=== PATIENT | male | born 1960 | race Caucasian/White ===

== ENCOUNTER → 2016-07-08 | Outpatient (CLI) | payer BC ==
[~2016-07-08] MED LIST: ATOR-24 PO; B-COCAP2 PO; FLUT0.15 NAE; LISI-729 PO; METAMUCIL PO; MULT-506 PO; PANT40TA PO
[2016-07-08 14:53] LABS: CHOLESTEROL/HDL RATIO 4.6
== END | disposition home or self-care (01) ==
LOC: C.LABPVFM 08:11
PROVIDERS: ATTEND Family Medicine
DX: E78.1 Pure hyperglyceridemia (principal)

== ENCOUNTER 2017-10-31 18:22 | Emergency (ER) | payer BC, OTHER ==
[~2017-10-31] VITALS: Ht 182.9 cm; Wt 91.4 kg
[2017-10-31 18:34] VITALS: TEMP 36.9; Ht 182.9 cm; Wt 91.4 kg
[2017-10-31] MEDS ORDERED: SODIUM CHLORIDE 0.9% 1000ML 1,000 ML IV STA (18:49)
[2017-10-31] MEDS ORDERED: OPTIRAY 320 IV PRN (19:00)
[2017-10-31 19:20] LABS: BASO % 0.3 %; BASO ABS # 0.04 K/uL (0-0.2); EOS % 0.6 %; EOS ABS # 0.09 K/uL (0-0.5); HEMOGLOBIN 14.5 g/dL (14.0-18.0); IG# 0.04 K/uL (0.00-0.02); LYMPH % 10.1 %; LYMPH ABS # 1.57 K/uL (1.2-3.4); MEAN CELL VOLUME 93.1 fL (80-100); MEAN CORPUSCULAR HEMOGLOBIN 32.2 pg (25-34); MEAN CORPUSCULAR HGB CONC 34.5 g/dl (32-36); MEAN PLATELET VOLUME 8.9 fL (7.4-10.4); MONO % 8.1 %; MONO ABS # 1.25 K/uL (0.11-0.59); NEUT % 80.6 %; NEUT ABS # 12.53 K/uL (1.4-6.5); PLATELET COUNT 307 K/uL (130-400); RED CELL DISTRIBUTION WIDTH CV 12.9 % (11.5-14.5); RED CELL DISTRIBUTION WIDTH SD 44.2 fL (36.4-46.3); WHITE BLOOD COUNT 15.52 K/uL (4.8-10.8)
[2017-10-31] MEDS ORDERED: CALC625T PO (19:33)
[2017-10-31] MEDS ORDERED: PANT20TA2 PO (19:33)
[2017-10-31] MEDS ORDERED: FENO67CA PO (19:33)
[2017-10-31] MEDS ORDERED: B-COTAB18 PO (19:33)
[2017-10-31] MEDS ORDERED: LISI-730 PO (19:33)
[2017-10-31 19:42] LABS: ALBUMIN 3.9 gm/dl (3.4-5.0); CALCIUM 9.1 mg/dl (8.5-10.1); CREATININE 1.07 mg/dl (0.60-1.40); POTASSIUM 3.8 mmol/L (3.5-5.1); TOTAL PROTEIN 7.3 gm/dl (6.4-8.2)
--- NOTE | 2017-10-31 20:32 | DIAGNOSTIC IMAGING REPORT ---
CT SCAN OF THE ABDOMEN AND PELVIS WITH IV CONTRAST CLINICAL HISTORY: Left lower quadrant abdominal pain. COMPARISON STUDY: Abdominal CT dated 12/26/2009. TECHNIQUE: Following the IV administration of 115 cc of Optiray 320, CT scan of the abdomen and pelvis is performed from the lung bases to the proximal femora. Images are reviewed in the axial, sagittal, and coronal planes. IV contrast was administered without complication. A dose lowering technique was utilized adhering to the principles of ALARA. CT DOSE: 512.56 mGy.cm FINDINGS: Lung bases: The heart is normal in size and without pericardial effusion. There is a calcified granuloma at the right lung base. The lung bases are otherwise clear. Liver: The contrast-enhanced liver is enlarged, measuring 20.3 cm in length. The liver demonstrates diminished attenuation consistent with mild hepatic steatosis. Fatty sparing is seen adjacent to gallbladder fossa. There is no intrahepatic biliary ductal dilatation. The hepatic veins and portal veins are patent. Gallbladder: Unremarkable. Spleen: Normal in size and attenuation. Pancreas: Moderately atrophic and grossly unremarkable. Adrenal glands: Unremarkable. Kidneys: The contrast enhanced kidneys demonstrate mild cortical atrophy and are without hydronephrosis. The kidneys enhance symmetrically. There is a small nonobstructing calculus identified on the right. Parapelvic cysts are seen on the left. Abdominal vasculature: The abdominal aorta is normal in course and caliber noting scattered foci of atherosclerotic calcification. Bowel: There is mild to moderate diverticulosis of the left colon. There is wall thickening with pericolonic inflammation and fluid seen around the distal descending/proximal sigmoid colon with consistent with acute diverticulitis. No diverticular abscess is identified. Mucosal thickening and hyperemia is also seen within the distal sigmoid and rectum. The proximal colon is decompressed. No bowel obstruction is identified. The appendix is not identified and reported surgically absent. Peritoneum: There is no intraperitoneal free air or abdominal ascites. Lymphadenopathy: None. Pelvic viscera: There is median lobe hypertrophy of the prostate gland. The bladder wall is mildly thickened and trabeculated suggesting chronic outlet obstruction. Calcified phleboliths are noted in the pelvis. Trace free fluid is seen in the pelvis. Skeletal structures: No lytic or blastic lesions are seen. Mild lumbosacral spondylosis is identified. IMPRESSION: 1. There is mild to moderate diverticulosis of the left colon with evidence of acute diverticulitis involving the distal descending/proximal sigmoid. There is no intraperitoneal free air or evidence of diverticular abscess. 2. A small volume of free fluid in the pelvis is likely on a reactive basis. 3. Mild wall thickening and hyperemia is suggested in the distal sigmoid and rectum. Correlate clinically for evidence of a mild superimposed proctitis. 4. There is a small nonobstructing right renal calculus. 5. Hepatomegaly and mild hepatic steatosis. 6. Additional findings as above. Electronically signed by: Shashi Cuadra M.D. 10/31/2017 8:31 PM Dictated Date/Time: 10/31/2017 8:21 PM
[2017-10-31] MEDS ORDERED: METRONIDAZOLE 250 MG TAB PO STA (21:09)
[2017-10-31] MEDS ORDERED: CIPROFLOXACIN 500MG HOME PACK PO ONE (21:15)
[2017-10-31] MEDS ORDERED: CIPR-255 PO (21:17)
[2017-10-31] MEDS ORDERED: METR-163 PO (21:17)
[2017-10-31 21:31] VITALS: BP 121/81; PULSE 68; O2SAT 97
--- NOTE | 2017-11-01 00:16 | EMERGENCY ROOM VISIT NOTE ---
History First contact with patient: 18:38 Chief Complaint: ABDOMINAL PAIN Stated Complaint: DIVERTICULITIOUS Nursing Triage Summary: Pain in lower abdomen since night, that got worse today. Took 2 laxatives at home, but this did not help. Denies nausea or vomiting. Denies diarrhea. History of Present Illness The patient is a 57 year old male who presents to the Emergency Room with complaints of lower central quadrant abdominal pain. The patient reports that his pain started 2 days ago, and has steadily worsened. The patient reports a prior history of diverticulitis, and reports that it feels the same. The patient last had diverticulitis last December 2016. The patient denies any constipation, rectal bleeding, nausea or vomiting. He denies any pain radiating into the right abdomen, back or chest. The patient also reports a prior history of kidney stones, but reports that this feels different. He has not noticed any hematuria or difficulty with urination. Review of Systems HEENT: Denies dizziness, visual problems, hearing loss, tinnitus. Denies difficulty swallowing or oral lesions. PULMONARY: Denies cough, shortness of breath, sputum production or hemoptysis. CARDIOVASCULAR: Denies chest pain, palpitations, dyspnea on exertion, orthopnea or peripheral edema. GASTROINTESTINAL: See HPI. GENITOURINARY: Denies dysuria, frequency, urgency or nocturia. NEUROLOGIC: Denies history of epilepsy, CVA, TIA or chronic headaches. MUSCULOSKELETAL: Denies history of joint tenderness/swelling. SKIN: Denies rashes or lesions. PSYCHIATRIC: Denies history of depression or mental illness. ENDOCRINE: Denies history of diabetes or thyroid disorders. Past Medical/Surgical History Medical Problems: (1) Abdom Aortic Aneurysm (2) Calculus Of Kidney (3) Diverticulosis Colon (W/O Ment Of Hemorrhage) (4) Esophageal Reflux (5) Essential (Primary) Hypertension (6) History Of Tobacco Use (7) Tobacco Use Disorder Family History Unremarkable Social History Smoking Status: Former Smoker Alcohol Use: occasionally Marital Status: Occupation Status: employed Current/Historical Medications Scheduled B-Complex Vitamins (Vitamin B Complex), 1 TAB PO DAILY Calcium Polycarbophil (Fibercon), 625 MG PO DAILY Ciprofloxacin Hcl (Cipro), 500 MG PO BID Fenofibrate Micronized (Tricor), 67 MG PO DAILY Lisinopril (Lisinopril), 5 MG PO DAILY Metronidazole (Flagyl), 500 MG PO TID Pantoprazole Sodium (Protonix), 20 MG PO BID Physical Exam Vital Signs Date Time Temp Pulse Resp B/P (MAP) Pulse Ox O2 Delivery O2 Flow Rate FiO2 10/31/17 21:31 68 121/81 97 10/31/17 20:13 71 158/90 96 Room Air 10/31/17 18:34 36.9 84 16 144/88 98 Room Air Physical Exam CONSTITUTIONAL: Healthy and well nourished. Alert and oriented X 3 with positive affect. Patient does not appear in any significant distress. HEENT: Normocephalic, atraumatic. Pupils equal, round and reactive. NECK: Full active range of motion without discomfort. RESPIRATORY: Clear to auscultation bilaterally with no wheezing, crackles, rhonchi or stridor. CARDIOVASCULAR: Regular rate and rhythm with no murmurs, rubs or gallops. GASTROINTESTINAL: Bowel sounds present in all quadrants. Examination shows suprapubic and left lower quadrant tenderness to palpation without rigidity, guarding or rebound. Negative ballottement. No hypertympany on percussion. Negative CVA tenderness. Negative McBurney's point tenderness. MUSCULOSKELETAL: Full range of motion of all joints without discomfort. No discomfort with range of motion of the left hip, or palpation of the lower lumbar spine, paraspinous muscles or sciatic notch. INTEGUMENTARY: No rash or other significant dermatologic conditions noted. HEMATOLOGIC: No ecchymosis or petechiae noted. NEUROLOGIC: No focal neurologic deficits noted. Medical Decision & Procedures ER Provider Diagnostic Interpretation: CT of the abdomen and pelvis with IV contrast shows evidence for an acute diverticulitis. No obvious abscess formation or microperforation noted. A possible proctitis is also suggested radiologist report is as follows: CT SCAN OF THE ABDOMEN AND PELVIS WITH IV CONTRAST CLINICAL HISTORY: Left lower quadrant abdominal pain. COMPARISON STUDY: Abdominal CT dated 12/26/2009. TECHNIQUE: Following the IV administration of 115 cc of Optiray 320, CT scan of the abdomen and pelvis is performed from the lung bases to the proximal femora. Images are reviewed in the axial, sagittal, and coronal planes. IV contrast was administered without complication. A dose lowering technique was utilized adhering to the principles of ALARA. CT DOSE: 512.56 mGy.cm FINDINGS: Lung bases: The heart is normal in size and without pericardial effusion. There is a calcified granuloma at the right lung base. The lung bases are otherwise clear. Liver: The contrast-enhanced liver is enlarged, measuring 20.3 cm in length. The liver demonstrates diminished attenuation consistent with mild hepatic steatosis. Fatty sparing is seen adjacent to gallbladder fossa. There is no intrahepatic biliary ductal dilatation. The hepatic veins and portal veins are patent. Gallbladder: Unremarkable. Spleen: Normal in size and attenuation. Pancreas: Moderately atrophic and grossly unremarkable. Adrenal glands: Unremarkable. Kidneys: The contrast enhanced kidneys demonstrate mild cortical atrophy and are without hydronephrosis. The kidneys enhance symmetrically. There is a small nonobstructing calculus identified on the right. Parapelvic cysts are seen on the left. Abdominal vasculature: The abdominal aorta is normal in course and caliber noting scattered foci of atherosclerotic calcification. Bowel: There is mild to moderate diverticulosis of the left colon. There is wall thickening with pericolonic inflammation and fluid seen around the distal descending/proximal sigmoid colon with consistent with acute diverticulitis. No diverticular abscess is identified. Mucosal thickening and hyperemia is also seen within the distal sigmoid and rectum. The proximal colon is decompressed. No bowel obstruction is identified. The appendix is not identified and reported surgically absent. Peritoneum: There is no intraperitoneal free air or abdominal ascites. Lymphadenopathy: None. Pelvic viscera: There is median lobe hypertrophy of the prostate gland. The bladder wall is mildly thickened and trabeculated suggesting chronic outlet obstruction. Calcified phleboliths are noted in the pelvis. Trace free fluid is seen in the pelvis. Skeletal structures: No lytic or blastic lesions are seen. Mild lumbosacral spondylosis is identified. IMPRESSION: 1. There is mild to moderate diverticulosis of the left colon with evidence of acute diverticulitis involving the distal descending/proximal sigmoid. There is no intraperitoneal free air or evidence of diverticular abscess. 2. A small volume of free fluid in the pelvis is likely on a reactive basis. 3. Mild wall thickening and hyperemia is suggested in the distal sigmoid and rectum. Correlate clinically for evidence of a mild superimposed proctitis. 4. There is a small nonobstructing right renal calculus. Laboratory Results 10/31/17 18:53 Red Blood Count 4.51, Mean Corpuscular Volume 93.1, Mean Corpuscular Hemoglobin 32.2, Mean Corpuscular Hemoglobin Concent 34.5, Mean Platelet Volume 8.9, Neutrophils (%) (Auto) 80.6, Lymphocytes (%) (Auto) 10.1, Monocytes (%) (Auto) 8.1, Eosinophils (%) (Auto) 0.6, Basophils (%) (Auto) 0.3, Neutrophils # (Auto) 12.53, Lymphocytes # (Auto) 1.57, Monocytes # (Auto) 1.25, Eosinophils # (Auto) 0.09, Basophils # (Auto) 0.04 10/31/17 18:53 Test 10/31/17 18:53 10/31/17 19:54 White Blood Count 15.52 K/uL (4.8-10.8) Red Blood Count 4.51 M/uL (4.7-6.1) Hemoglobin 14.5 g/dL (14.0-18.0) Hematocrit 42.0 % (42-52) Mean Corpuscular Volume 93.1 fL (80-100) Mean Corpuscular Hemoglobin 32.2 pg (25-34) Mean Corpuscular Hemoglobin Concent 34.5 g/dl (32-36) Platelet Count 307 K/uL (130-400) Mean Platelet Volume 8.9 fL (7.4-10.4) Neutrophils (%) (Auto) 80.6 % Lymphocytes (%) (Auto) 10.1 % Monocytes (%) (Auto) 8.1 % Eosinophils (%) (Auto) 0.6 % Basophils (%) (Auto) 0.3 % Neutrophils # (Auto) 12.53 K/uL (1.4-6.5) Lymphocytes # (Auto) 1.57 K/uL (1.2-3.4) Monocytes # (Auto) 1.25 K/uL (0.11-0.59) Eosinophils # (Auto) 0.09 K/uL (0-0.5) Basophils # (Auto) 0.04 K/uL (0-0.2) RDW Standard Deviation 44.2 fL (36.4-46.3) RDW Coefficient of Variation 12.9 % (11.5-14.5) Immature Granulocyte % (Auto) 0.3 % Immature Granulocyte # (Auto) 0.04 K/uL (0.00-0.02) Anion Gap 6.0 mmol/L (3-11) Est Creatinine Clear Calc Drug Dose 83.6 ml/min Estimated GFR () 88.8 Estimated GFR (Non- 76.7 BUN/Creatinine Ratio 16.3 (10-20) Calcium Level 9.1 mg/dl (8.5-10.1) Total Bilirubin 0.8 mg/dl (0.2-1) Direct Bilirubin 0.1 mg/dl (0-0.2) Aspartate Amino Transf (AST/SGOT) 19 U/L (15-37) Alanine Aminotransferase (ALT/SGPT) 27 U/L (12-78) Alkaline Phosphatase 106 U/L (45-117) Total Protein 7.3 gm/dl (6.4-8.2) Albumin 3.9 gm/dl (3.4-5.0) Lipase 110 U/L (73-393) Urine Color YELLOW Urine Appearance CLEAR (CLEAR) Urine pH 6.5 (4.5-7.5) Urine Specific [place] 1.011 (1.000-1.030) Urine Protein NEG (NEG) Urine Glucose (UA) NEG (NEG) Urine Ketones NEG (NEG) Urine Occult Blood NEG (NEG) Urine Nitrite NEG (NEG) Urine Bilirubin NEG (NEG) Urine Urobilinogen NEG (NEG) Urine Leukocyte Esterase NEG (NEG) The above labs were reviewed a moderate leukocytosis with left shift and bandemia. Partial renal profile, LFTs and lipase are grossly normal except for a mild hyponatremia. Urinalysis is unremarkable. Medications Administered Medications (Trade) Dose Ordered Sig/Tramaine Route Start Time Stop Time Status Last Admin Dose Admin Sodium Chloride 1,000 ml @ 999 mls/hr Q1H1M STAT IV 10/31/17 18:49 10/31/17 19:49 DC 10/31/17 19:08 999 MLS/HR Metronidazole (Flagyl Tab) 1,000 mg NOW STAT PO 10/31/17 21:09 10/31/17 21:11 DC 10/31/17 21:27 1,000 MG Ciprofloxacin (Cipro 500MG Home Pack) 1 homepack UD ONCE PO 10/31/17 21:15 10/31/17 21:16 DC 10/31/17 21:27 1 HOMEPACK ED Course Patient history and physical exam were performed. Nurse's notes were reviewed. Vital signs were reviewed and were normal. Patient does not appear in any acute distress. IV access was established, and labs were drawn. The patient was hydrated with a liter normal saline. He refused any and all these aches. Labs were reviewed to show a moderate leukocytosis. Remaining labs, including LFTs, lipase and urinalysis were normal. CT of the abdomen and pelvis with IV contrast shows evidence for acute diverticulitis. The patient reports that he felt well enough to go home, and is requesting prescription antibiotics. He refused any parenteral treatment or hospitalist evaluation. The patient will be provided home packs and prescriptions for Cipro and Flagyl. He was encouraged to follow-up with his PCP within the next 2-3 days for reevaluation. He was instructed to return to the emergency department sooner for any signs of worsening pain, rectal bleeding, fever or other concerns. The patient was happy with plan of care, voiced understanding of all discharge instructions, and denied any significant discomfort at the time of discharge. Medical Decision Workup today is consistent with an acute diverticulitis. CT scans does not show any evidence for abscess or perforation. Clinical exam is not suggestive of appendicitis. Laboratory studies are also not suggestive of pancreatitis, cholecystitis, hepatitis or UTI. Medication Reconcilliation Current Medication List: was personally reviewed by [facility] Blood Pressure Screening Patient's blood pressure: Normal blood pressure Impression Primary Impression: Diverticulitis Departure Information Dispostion Home / Self-Care Prescriptions Metronidazole (Flagyl) 500 Mg Tab 500 MG PO TID for Pain for 10 Days, #30 TAB For Initial Treatment Prov: Sarwat Crane PA 10/31/17 Ciprofloxacin Hcl (CIPRO) 500 Mg Tab 500 MG PO BID for 10 Days, #20 TAB Prov: Sarwat Crane PA 10/31/17 Forms Call Back Authorization, HOME CARE DOCUMENTATION FORM, IMPORTANT VISIT INFORMATION Patient Instructions [facility] Additional Instructions Complete all Cipro and Flagyl antibiotics as prescribed. Follow-up with your family doctor in 2-3 days for recheck, and to discuss referral to a gut sorter for further reevaluation.
== END 2017-10-31 21:33 | disposition home or self-care (01) ==
LOC: C.EDB 18:25
DX: K57.92 Diverticulitis of intestine, part unspecified, without perforation or abscess without bleeding (principal); I10 Essential (primary) hypertension; K21.9 Gastro-esophageal reflux disease without esophagitis; Z87.19 Personal history of other diseases of the digestive system; Z87.891 Personal history of nicotine dependence

== ENCOUNTER → 2017-11-06 | Outpatient (CLI) | payer OTHER ==
[~2017-11-06] MED LIST changes: -ATOR-24 PO; -B-COCAP2 PO; +B-COTAB18 PO; +CALC625T PO; +CIPR-255 PO; +FENO67CA PO; -FLUT0.15 NAE; -LISI-729 PO; +LISI-730 PO; -METAMUCIL PO; +METR-163 PO; -MULT-506 PO; +PANT20TA2 PO; -PANT40TA PO
== END | disposition home or self-care (01) ==
LOC: C.RDSM 09:04
PROVIDERS: ATTEND Family Medicine Sports Medicine
DX: M25.562 Pain in left knee (principal)